=== PATIENT | male | born 1990 | race Caucasian/White ===

== ENCOUNTER 2016-09-02 15:43 | Emergency (ER) | payer SELFPAY ==
[2016-09-02 15:52] VITALS: BP 133/70
--- NOTE | 2016-09-02 16:36 | ER Document Report ---
HPI - HPI Patient complains to provider of: suture removal Onset: Other - 3 weeks Pain Level: 0 Context: 26 yo male with sutured self inflicted left volar forearm cuts is here for suture removal. Was in psych treatment and feels better. Associated Symptoms: None Exacerbated by: Denies Relieved by: Denies Similar symptoms previously: No Recently seen / treated by doctor: No - ROS ROS below otherwise negative: Yes Systems Reviewed and Negative: Yes All other systems reviewed and negative - DERM Skin Color: Normal Past Medical History - General Information source: Patient - Social History Smoking Status: Unknown if Ever Smoked Frequency of alcohol use: None Drug Abuse: None Lives with: Family Family History: Reviewed & Not Pertinent Patient has suicidal ideation: No Patient has homicidal ideation: No - Medical History Medical History: Negative Renal/ Medical History: Denies: Hx Peritoneal Dialysis Surgical Hx: Negative - Immunizations Hx Diphtheria, Pertussis, Tetanus Vaccination: Yes - unk Vertical Provider Document - CONSTITUTIONAL Agree With Documented VS: Yes Exam Limitations: No Limitations General Appearance: No Apparent Distress - INFECTION CONTROL TRAVEL OUTSIDE OF THE [place] IN LAST 30 DAYS: No - NECK Neck: Supple - RESPIRATORY O2 Sat by Pulse Oximetry: 100 - MUSCULOSKELETAL/EXTREMETIES Musculoskeletal/Extremeties: MAEW, FROM, Non-Tender - NEURO Level of Consciousness: Awake, Alert, Appropriate - DERM Integumentary: Warm, Dry, Laceration - left volar forearm with healted sutured vertical wounds Course - Vital Signs Vital signs: Temp Pulse Resp BP Pulse Ox 98.1 F 64 16 133/70 H 100 09/02/16 15:51 09/02/16 15:51 09/02/16 15:51 09/02/16 15:51 09/02/16 15:51 Discharge - Discharge Clinical Impression: Encounter for removal of sutures Condition: Good Disposition: HOME, SELF-CARE Instructions: Suture Removal Additional Instructions: to er any concerns Please complete the patient satisfaction survey if you get one, and return it.. If you do not receive a survey, then you can go to the [facility] website, [email or web address] and place your comments about your very good care. Thank you very much. It was a pleasure being your medical provider today.
== END 2016-09-02 17:13 | disposition home or self-care (01) ==
LOC: ER 15:43
DX: S51.812D Laceration without foreign body of left forearm, subsequent encounter (principal); X78.9XXD Intentional self-harm by unspecified sharp object, subsequent encounter

== ENCOUNTER 2018-11-07 06:46 | Emergency (ER) | payer SELFPAY ==
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
[2018-11-07 07:26] LABS: ABSOLUTE LYMPHOCYTES (AUTO) 2.9 10^3/uL (0.5-4.7); ABSOLUTE MONOCYTES (AUTO) 0.7 10^3/uL (0.1-1.4); ABSOLUTE NEUT (AUTO) 4.7 10^3/uL (1.7-8.2); BASOPHILS % (AUTO) 0.4 % (0-2); EOSINOPHILS % (AUTO) 0.3 % (0-6); HEMATOCRIT 45.7 % (37.9-51.0); HEMOGLOBIN 15.7 g/dL (13.5-17.0); LYMPHOCYTES % (AUTO) 34.4 % (13-45); MEAN CORPUSCULAR HEMOGLOBIN 29.3 pg (27.0-33.4); MEAN CORPUSCULAR HGB CONC 34.3 g/dL (32.0-36.0); MEAN CORPUSCULAR VOLUME 86 fl (80-97); MONOCYTES % (AUTO) 8.3 % (3-13); PLATELET COUNT 251 10^3/uL (150-450); RED BLOOD COUNT 5.34 10^6/uL (4.35-5.55); RED CELL DISTRIBUTION WIDTH 12.9 % (11.5-14.0); SEGMENTED NEUTROPHILS % (AUTO) 56.6 % (42-78); TOTAL CELLS COUNTED % (AUTO) 100 %; WHITE BLOOD COUNT 8.4 10^3/uL (4.0-10.5)
[2018-11-07 07:48] LABS: ALANINE AMINOTRANSFERASE 18 U/L (21-72); ALBUMIN 5.1 g/dL (3.5-5.0); ALCOHOL 109 mg/dL (NONE DETECTED); ALKALINE PHOSPHATASE 65 U/L (38-126); ANION GAP 14 (5-19); ASPARTATE AMINO TRANSFERASE 34 U/L (17-59); BILIRUBIN,DIRECT 0.3 mg/dL (0.0-0.4); BILIRUBIN,TOTAL 0.4 mg/dL (0.2-1.3); BLOOD UREA NITROGEN 13 mg/dL (7-20); CALCIUM 9.3 mg/dL (8.4-10.2); CARBON DIOXIDE 25 mmol/L (22-30); CHLORIDE 107 mmol/L (98-107); GLUCOSE 96 mg/dL (75-110); POTASSIUM 4.6 mmol/L (3.6-5.0); SODIUM 145.5 mmol/L (137-145); TOTAL PROTEIN 8.1 g/dL (6.3-8.2)
[2018-11-07 07:58] LABS: ACETAMINOPHEN < 10 ug/mL (10-30); SALICYLATE < 1.0 mg/dL (2.0-20.0)
[2018-11-07 10:45] LABS: AMORPHOUS SEDIMENT,URINE TRACE /HPF; APPEARANCE,URINE CLOUDY; BILIRUBIN,URINE NEGATIVE (NEGATIVE); COLOR,URINE YELLOW; GLUCOSE, URINE NEGATIVE (NEGATIVE); KETONES,URINE TRACE mg/dL (NEGATIVE); LEUKOCYTE ESTERASE,URINE NEGATIVE (NEGATIVE); NITRITE,URINE NEGATIVE (NEGATIVE); PROTEIN,URINE 30 mg/dL (NEGATIVE); URINE SPECIFIC GRAVITY 1.027
[2018-11-07 11:17] LABS: URINE AMPHETAMINES SCREEN NEGATIVE; URINE BARBITURATES SCREEN NEGATIVE; URINE BENZODIAZEPINES SCREEN NEGATIVE; URINE COCAINE SCREEN NEGATIVE; URINE MARIJUANA (THC) SCREEN NEGATIVE; URINE METHADONE SCREEN NEGATIVE; URINE PHENCYCLIDINE SCREEN NEGATIVE
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
[2018-11-07] MEDS ORDERED: BENZTROPINE MESYLATE 1 MG TABLET PO ONE (13:25)
[2018-11-07] MEDS: OLANZAPINE 5 MG TABLET PO SCH ×2 (14:01→18:10)
--- NOTE | 2018-11-07 20:06 | EKG REPORT ---
SEVERITY:- ABNORMAL ECG - SINUS RHYTHM PROBABLE LEFT VENTRICULAR HYPERTROPHY : Confirmed by: Monserrat Guerrero MD 07-Nov-2018 20:05:23
[2018-11-08] MEDS: BENZTROPINE MESYLATE 1 MG TABLET PO SCH ×2 (07:32→09:58)
[2018-11-08] MEDS: OLANZAPINE 5 MG TABLET PO SCH (10:05)
--- NOTE | 2018-11-08 10:09 | ER Document Report ---
Doctor's Note Notes: 11/08/18 10:06 I have evaluated this pt. this am and he has no c/o. He feels all of his needs are being met and his physical exam is normal. He is awaiting disposition per mental health.
[2018-11-08 11:36] VITALS: BP 122/69
--- NOTE | 2018-11-08 12:02 | PSYCHOLOGICAL NOTE ---
Psych Note - Psych Note Date seen by psych provider: 11/08/18 Time seen by psych provider: 07:50 Psych Note: Reason for Consult: Suicidal ideation, homicidal gesture 28-year-old male with history of bipolar disorder, manic depressive disorder presents in police custody after patient placed a gun to his head and threatened suicide. Check in with patient Patient's mood is currently euthymic with congruent affect as evidenced by smiling engaging with clinician. He denies current thoughts of wanting to harm himself or others. Patient states that his bouts of suicidal ideation "comes and goes in waves" and is normally "stressed induced." Clinician discussed concerns about upcoming stressful events i.e. legal ramifications prior to [facility] arrival. Patient confirms that it will be stressful; however, is able to identify support network and states "I am just can have to get through it." Patient confirms he would like to continue taking medications started while at [facility]. Clinician provided psychoeducation on the importance of not just medication management but therapeutic services and the need for the patient to engage in a trauma focused therapy such as TFCBT. Clinician also discussed the importance of not engaging in maladaptive coping skills, such as drinking alcohol, and engaging with therapeutic services to build positive coping skills. Diagnosis PTSD Medication recommendations per [facility]'s contracted psychiatrist Dr. Praneeth SCHMIDT are as follows Zyprexa 5mg twice daily Cogentin 1mg daily Impression/plan: patient is recommended for rescind of IVC and is cleared from acute psychiatric services. Patient no longer meets IVC criteria per [place] GS 122C. Patient denies any thoughts of wanting to harm himself or others. Patient was under the influence during previous events prior to [facility] arrival. Patient was started on medication and confirms he would like to continue taking medication and agrees to engage in therapeutic services. Patient demonstrates forward thinking and problem solving skills when discussing with clinician his legal ramifications that he must now deal with. Patient is highly encouraged to engage in a trauma focused therapy. Dr. Garcia was consulted on the care and management of this patient; attending physician is in agreement with recommendations and disposition.
== END 2018-11-08 11:41 | disposition home or self-care (01) ==
LOC: ER 06:46
DX: R45.851 Suicidal ideations (principal); F43.10 Post-traumatic stress disorder, unspecified; F17.210 Nicotine dependence, cigarettes, uncomplicated
CPT/HCPCS: 36415; 80053; 80307; 81001; 85025; 93005; 93010; 99285; 99406